=== PATIENT | male | born 1990 | race American Indian/Alaskan Native ===

== ENCOUNTER 2020-10-29 15:13 | Emergency (ER) | payer SELFPAY ==
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
[2020-10-29 15:58] VITALS: BP 153/106
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
== END 2020-10-29 17:07 | disposition home or self-care (01) ==
LOC: ED 15:13
DX: S13.4XXA Sprain of ligaments of cervical spine, initial encounter (principal); Z79.899 Other long term (current) drug therapy; V49.59XA Passenger injured in collision with other motor vehicles in traffic accident, initial encounter; Y93.89 Activity, other specified; Y92.488 Other paved roadways as the place of occurrence of the external cause; Y99.8 Other external cause status
CPT/HCPCS: 71046; 72100; 99283